=== PATIENT | female | born 1995 | race Caucasian/White ===

== ENCOUNTER 2018-09-29 00:04 | Emergency (ER) | payer OTHER ==
[~2018-09-29] VITALS: Ht 154.9 cm; Wt 90.7 kg
[2018-09-29 00:15] VITALS: BP 143/94
[2018-09-29] MEDS: traMADol 50 MG TABLET PO ONE (00:40)
[2018-09-29] MEDS ORDERED: IBUP-1060 PO (01:12)
[2018-09-29] MEDS ORDERED: HYDR-3164 PO (01:12)
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
== END 2018-09-29 01:17 | disposition home or self-care (01) ==
LOC: ER 00:04
DX: S40.012A Contusion of left shoulder, initial encounter (principal); Y04.0XXA Assault by unarmed brawl or fight, initial encounter; Y93.89 Activity, other specified; Y92.89 Other specified places as the place of occurrence of the external cause; Y99.8 Other external cause status
CPT/HCPCS: 73030; 73080; 99283